=== PATIENT | male | born 1995 | race Caucasian/White ===

== ENCOUNTER 2017-03-11 15:36 | Emergency (ER) | payer SELFPAY ==
[2017-03-11 15:40] VITALS: BMI 28.3
[2017-03-11] MEDS ORDERED: SOLU-Medrol 125 MG VIAL IM ONE (17:13)
[2017-03-11] MEDS ORDERED: PHENERGAN INJ 25 MG IM ONE (17:14)
[2017-03-11] MEDS ORDERED: TORADOL 60 MG VIAL IM ONE (17:14)
--- NOTE | 2017-03-11 17:16 | DR.GENAD ---
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 States the pain is 9 of 10 and is worst when he moves with the pain like something is twisting in the lower back worst unless he lay on his left side. He has a headache but has problems with migraines and is going to see his doctor next week for his migraines. States he is taking Maxalt for his headaches. He has been having nausea with one episode of vomiting but denies blurred vision or spots in front of his eyes. He denies hematuria, fever or chills. He denies neck pain or numbness in legs or hands. Chief Complaint:: PATIENT HURT HIS BACK AT WORK. HE STATED THAT HE WAS BOUNCING AROUND IN A TRUCK AND NOW HIS BACK IS HURTING. - Nurses notes reviewed Nurses Notes Review: Yes - Source History Provided: Patient - Mode of Arrival Mode of Arrival: Ambulatory - Timing Onset of Chief Complaint: 03/11/17 Came on: Suddenly - Duration Duration: Constant How lon Duration: Hours - Location Location: lower back pain - Severity Severity: Moderate, Severe - Modifying Factors Worsens:: movement Improves:: nothing PMH - PMH Past Medical History: Yes Past Medical History: Liver Disease, Asthma, PUD, Headaches Past Surgical History: No Surgical History: Other - Family History History of Family Medical Conditions: Yes Family Medical History: Hypertension - Social History Does patient currently use any type of tobacco product: No Have you used tobacco products in the last 12 months: No Type of Tobacco Use: None Does any household member use tobacco: No Alcohol Use: None Do you use any recreational Drugs:: No Lives With: Family Lives Where: Home - infectious screening In the last 2 months have you had wt loss of >10#?: NO Have you had fever, night sweats or hemotysis?: No Have you traveled outside the country in the last 6 months?: No Isolation: Standard ROS - Review of Systems Constitutional: No Symptoms Reported Eyes: No Symptoms Reported. negative: See HPI, Eye Pain, Blurred Vision, Tearing, Discharge, Photophobia, Diplopia, Other ENTM: No Symptoms Reported. negative: See HPI, Ear Pain, Ear Discharge, Pulling on Ears, Hearing Loss, Nose Pain, Nose Discharge, Epistaxis, Nose Congestion, Mouth Pain, Mouth Swelling, Loose Teeth, Drooling, Throat Pain, Throat Swelling, Ear Foreign Body Respiratoy: No Symptoms Reported Cardiovascular: No Symptoms Reported Gastrointestinal/Abdominal: No Symptoms Reported Genitourinary: No Symptoms Reported Neurological: No Symptoms Reported, Headache, Problems Walking. negative: See HPI, Anxiety, Depressed, Emotional Problems, Numbness, Paresthesia, Pre- existing Deficit, Seizure, Tingling, Tremors, Weakness, Dizziness, Speech Problem, Other Musculoskeletal: No Symptoms Reported, Back Integumentary: No Symptoms Reported. negative: See HPI, Change in Color, Change in Hair/Nails, Dryness, Lesions, Lumps, Rash, Itching, Wound, Bruises, Juandice, Other Hematologic/Lymphatic: No Symptoms Reported. negative: See HPI, Anemia, Blood Clots, Easy Bleeding, Easy Bruising, Swollen Glands, Lymphadenopathy, Other Endocrine: No Symptoms Reported Psychiatric: No Symptoms Reported PE - Vital Signs Vitals: Pulse Rate 94 Respiratory Rate 20 Blood Pressure 135/64 O2 Sat by Pulse Oximetry 98 - General Limitations: No Limitations General Appearance: Alert, In Distress (moderate to severe) - Head Head Exam: Normal Inspection, Atraumatic, Normocephalic - Eyes Eye exam: Normal Appearance, PERRL, EOMI. negative: Scleral Icterus, Conjunctival Injection, Nystagmus, Miosis, Mydrasis, Periorbital Swelling, Periorbital Tenderness, Other - ENT ENT Exam: Normal Exam, Normal Oropharynx, Normal External Ear Exam, Mucous Membranes Moist, TM's Normal Bilaterally External Ear Exam: Normal External Inspection TM/Canal Exam: Bilateral Normal Nose Exam: Normal Nose Exam Mouth Exam: Normal Inspection Throat Exam: Normal Inspection - Neck Neck Exam: Normal Inspection, Full ROM, Trachea Midline. negative: Tenderness, Meningismus, Lymphadenopathy, Thyromegaly, Other - Chest Chest Inspection: Normal Inspection, Symmetric Chest Wall Rise - Respiratory Respiratory Exam: Normal Lung Sounds Bilat Respiratory Exam: Bilateral Clear to Auscultation - Cardiovascular Cardiovascular Exam: Regular Rate, Normal Rhythm - Abdominal Exam Abdominal Exam: Normal Inspection, Normal Bowel Sounds, Soft. negative: Distention, Tenderness, Guarding, Rebound, Rigidity, Dimnished Bowel Sounds, Hyperactive Bowel Sounds, Hypoactive Bowel Sounds, Organomegaly, Trauma, Incision, Ascites, Mass, Bruit, Pulsatile Mass, Hernia, Other Abdominal Tenderness: negative: RUQ, RLQ, LUQ, LLQ, Epigastrium, Suprapubic, Diffuse, Mild, Moderate, Severe, Other - Extremities Extremities Exam: Normal Inspection, Full ROM, Normal Capillary Refill. negative: Tenderness, Edema, Joint Swelling, Calf Tenderness, Other - Back Back Exam: Normal Inspection, Tenderness (tenderness L2-4 midline), Vertebral Tenderness, (L) Straight Leg Raise. negative: Full ROM (decreased flexion) - Neurologic Neurological Exam: Alert, Oriented X3, CN II-XII Intact, Reflexes Normal. negative: Normal Gait (gait not tested) - Psychiatric Psychiatric Exam: Normal Affect, Normal Mood - Skin Skin Exam: Warm, Dry, Intact, Normal Color ROR - Labs Reviewed Laboratory Results Reviewed?: Yes (all labs and x-ray results reviewed and discussed with patient) Laboratory: Specimen Type Clean catch urine 03/11/17 17:39 Urine Color [place] (YELLOW) 03/11/17 17:39 Urine Appearance Slightly hazy (CLEAR) 03/11/17 17:39 Urine pH 5.0 (5.0 - 8.0) 03/11/17 17:39 Ur Specific [place] 1.025 (1.000-1.030) 03/11/17 17:39 Urine Protein 2+ (NEGATIVE) 03/11/17 17:39 Urine Glucose (UA) Negative (NEGATIVE) 03/11/17 17:39 Urine Ketones 1+ (NEGATIVE) 03/11/17 17:39 Urine Occult Blood 2+ (NEGATIVE) 03/11/17 17:39 Urine Nitrite Negative (NEGATIVE) 03/11/17 17:39 Urine Bilirubin 1+ (NEGATIVE) 03/11/17 17:39 Urine Urobilinogen 2+ (NORMAL) 03/11/17 17:39 Ur Leukocyte Esterase 1+ (NEGATIVE) 03/11/17 17:39 Urine RBC 03 - 06 /HPF (NEGATIVE) 03/11/17 17:39 Urine WBC Rare /HPF (NEGATIVE) 03/11/17 17:39 Ur Squamous Epith Cells Rare /HPF (NEGATIVE) 03/11/17 17:39 Amorphous Sediment 2+ /HPF (NEGATIVE) 03/11/17 17:39 Urine Bacteria Negative /HPF (NEGATIVE) 03/11/17 17:39 Hyaline Casts Rare /LPF (NEGATIVE) 03/11/17 17:39 Urine Mucus Moderate /HPF (NEGATIVE) 03/11/17 17:39 Ur Culture Indicated? No/not indicated 03/11/17 17:39 - XRAY XRAY Interpreted by: Radiologist (CT lumbar spine: NO acute abnormality of the lumbar spine) - Diagnosis Discharge Problem: Lumbosacral injury, Lumbosacral strain, Headache Acute low back pain Qualifiers: Back pain laterality: midline Sciatica presence: without sciatica Qualified Code(s): M54.5 - Low back pain - Discharge Plan Disposition: HOME, SELF-CARE Condition: Stable Prescriptions: Cyclobenzaprine HCl [FLEXERIL 10 MG *] 10 mg PO BID #24 tab Ibuprofen [MOTRIN TAB 800 MG *] 800 mg PO Q8H PRN #30 tab PRN Reason: Pain/Inflammation Prednisone [Prednisone DS Dosepak 10 mg (12 day)] 1 phil PO ONCE #1 phil - Follow ups/Referrals Follow ups/Referrals: NFD,None [Primary Care Provider] - 3 days JOVAN BUSTILLOS [STAFF PHYSICIAN] - 3 days - Instructions Instructions: Back Pain, Adult, [id number], Back Exercises, Headache, Pediatric
[2017-03-11] MEDS ORDERED: TORADOL 60 MG VIAL ONE (17:33)
[2017-03-11] MEDS ORDERED: SOLU-Medrol 125 MG VIAL ONE (17:34)
[2017-03-11] MEDS ORDERED: PHENERGAN INJ 25 MG ONE (17:34)
[2017-03-11 17:53] LABS: BILIRUBIN,URINE 1+ (NEGATIVE); BLOOD/HEMOGLOBIN,URINE 2+ (NEGATIVE); GLUCOSE, URINE NEGATIVE (NEGATIVE); KETONES,URINE 1+ (NEGATIVE); LEUKOCYTE ESTERASE ,URINE 1+ (NEGATIVE); NITRITES,URINE NEGATIVE (NEGATIVE); PROTEIN,URINE 2+ (NEGATIVE); UROBILINOGEN,URINE 2+ (NORMAL)
[2017-03-11 18:06] LABS: APPEARANCE,URINE SLIGHTLY HAZY (CLEAR); BACTERIA,URINE NEGATIVE /HPF (NEGATIVE); COLOR,URINE AMBER (YELLOW); SQUAMOUS EPITHELIAL CELL,UR RARE /HPF (NEGATIVE)
[2017-03-11 18:07] LABS: AMORPHOUS SEDIMENT,UR 2+ /HPF (NEGATIVE); HYALINE CASTS, URINE RARE /LPF (NEGATIVE); MUCUS,URINE MODERATE /HPF (NEGATIVE)
[2017-03-11] MEDS ORDERED: FLAGYL TAB 500 MG PO STA (18:21)
[2017-03-11] MEDS ORDERED: LEVAQUIN TAB 500 MG PO SCH (19:00)
--- NOTE | 2017-03-11 19:37 | CT ---
LUMBAR SPINE CT WITHOUT IV CONTRAST CLINICAL INDICATION: Hurt back at work TECHNIQUE: Multiple-row detector helical CT examination of the lumbar spine. Axial, sagittal, and cor onal reconstructed images. Dose reduction techniques including Automated Exposure Control (AEC) and a djustment of mA and kV were utlized. COMPARISON: None. FINDINGS: There is no evidence of acute fracture or subluxation. Normal alignment is maintained without scolios is or listhesis. Vertebral body heights are maintained. No aggressive osseous lesions are identified. Intervertebral disc space heights are maintained. Evaluation of the individual levels demonstrates n o disc herniation, spinal canal stenosis, or neural foraminal narrowing. IMPRESSION: 1. No acute abnormality of the lumbar spine. Reported By:
[2017-03-11 20:09] VITALS: BP 122/57
== END 2017-03-11 20:20 | disposition home or self-care (01) ==
LOC: ER 16:00
DX: S39.92XA Unspecified injury of lower back, initial encounter (principal); S39.012A Strain of muscle, fascia and tendon of lower back, initial encounter; M54.5 Low back pain; R51 Headache; Y33.XXXA Other specified events, undetermined intent, initial encounter; Y92.69 Other specified industrial and construction area as the place of occurrence of the external cause
CPT/HCPCS: 72131; 81001; 96372; 99282; 99283; J1885; J2550; J2930